=== PATIENT | male | born 1960 | race Caucasian/White ===

== ENCOUNTER 2021-03-26 10:58 | Emergency (ER) | payer SELFPAY ==
[~2021-03-26] VITALS: Ht 172.7 cm; Wt 92.0 kg
--- NOTE | 2021-03-26 11:05 | NUR ---
Report received from EMS and care assumed. Pt changed into gown and placed on monitor. Pt tearful intermittently and cooperative. States he drinks a lot and is homeless.
[2021-03-26 12:33] VITALS: BP 160/88
--- NOTE | 2021-03-26 12:34 | NUR ---
Pt resting with eyes closed while curled up on his R side.
--- NOTE | 2021-03-26 13:05 | NUR ---
Pt assisted with a cup of water per call light request. Pt found sitting in a chair in the room. Drank water, climbed back into bed when notified of d/c when able to walk.
--- NOTE | 2021-03-26 13:25 | NUR ---
Pt room empty and cleaned. Unknown where pt went or when. Department searched including bathrooms without finding pt.
--- NOTE | 2021-03-26 13:35 | NUR ---
notified of pt elopement. rail crew member notified of pt elopement as well. Pt's dog in kennel with water in ambulance bay. Animal control to be called.
== END 2021-03-26 13:46 | disposition left against medical advice (07) ==
LOC: ED 13:40
DX: F10.220 Alcohol dependence with intoxication, uncomplicated (principal); I10 Essential (primary) hypertension; E78.5 Hyperlipidemia, unspecified; Z87.891 Personal history of nicotine dependence; Y90.0 Blood alcohol level of less than 20 mg/100 ml
CPT/HCPCS: 99283